=== PATIENT | male | born 2000 | race Caucasian/White ===

== ENCOUNTER 2018-03-01 15:08 | Day surgery (SDC) | payer BC ==
[~2018-03-01 15:08] MED LIST: HYDROCODONE/APAP 5/325 TAB PO SCH
--- NOTE | 2018-03-01 15:39 | EDPHY ---
H & P Stated Complaint: RUQ abd pain Time Seen by Provider: 03/01/18 15:35 HPI/ROS: HPI: This is a 18-year-old male who presents with Chief Complaint: Right upper quadrant abdominal pain Location: Right upper quadrant abdominal Quality: Pain Duration: Since this morning around 8:00 a.m. Signs and Symptoms: no fever, no nausea, no vomiting, no hematemesis, no blood in stool, no abdominal bloating, no diarrhea, no back pain, no urinary symptoms , no testicular/groin pain, no indigestion, no chest pain, no shortness of breath Timing: Acute, intermittent Severity: [id number] Context: Patient reports that he had run noodles for dinner yesterday and 1 beer woke up this morning with mid right abdominal pain that was more upper this morning and has now moved to the lower quadrant this afternoon. He reports he went to [facility] who was concerned about appendicitis and was directed to the emergency room for further evaluation. He denies fever, nausea, vomiting, diarrhea, urinary symptoms, testicular groin pain. His last meal ingestion was around noon for lunch. Mother is at bedside. Patient had a bowel movement yesterday. Ate burrito at 2:00 p.m. Modifying Factors: None Comment: ROS: A comprehensive 10 system review of systems is otherwise negative aside from elements mentioned in the history of present illness. MEDICAL/SURGICAL/SOCIAL HISTORY: Medical history: Generally healthy. Does not take any regular medications. Surgical history: Denies Social history: Nonsmoker. Denies drug use. Student at [employer]. Family history noncontributory. CONSTITUTIONAL: Nontoxic-appearing extremely well-appearing young adult white male, awake and alert, no obvious distress HEENT: Atraumatic and normocephalic, PERRL, EOMI. Nares patent; no rhinorrhea; no nasal mucosal edema. Tympanic membranes clear. Oropharynx clear, no exudate and moist pink mucosa. Airway patent. No lymphadenopathy. No meningismus. Cardiovascular: Normal S1/S2, regular rate, regular rhythm, without murmur rub or gallop. PULMONARY/CHEST: Symmetrical and nontender. Clear to auscultation bilaterally. Good air movement. No accessory muscle usage. ABDOMEN: Soft, nondistended, mild right upper quadrant and right lower quadrant tenderness, no rebound, no guarding, no peritoneal signs, no masses or organomegaly. No CVAT. EXTREMITIES: 2/2 pulses, strength 5/5, no deformities, no clubbing, no cyanosis or edema. NEUROLOGICAL: no focal neuro deficits. GCS 15. SKIN: Warm and dry, no erythema. no rash. Good capillary refill. Source: Patient Exam Limitations: No limitations - Personal History Current Tetanus/Diphtheria Vaccine: Yes Current Tetanus Diphtheria and Acellular Pertussis (TDAP): Yes - Medical/Surgical History Hx Asthma: No Hx Chronic Respiratory Disease: No Hx Diabetes: No Hx Cardiac Disease: No Hx Renal Disease: No Hx Cirrhosis: No Hx Alcoholism: No Hx HIV/AIDS: No Hx Splenectomy or Spleen Trauma: No Other PMH: denies - Social History Smoking Status: Never smoked Constitutional: Initial Vital Signs Temperature (C) 37.1 C 03/01/18 15:23 Heart Rate 82 03/01/18 15:23 Respiratory Rate 16 03/01/18 15:23 Blood Pressure 117/72 03/01/18 15:23 O2 Sat (%) 96 03/01/18 15:23 O2 Delivery Mode Room Air Allergies/Adverse Reactions: No Known Allergies Allergy (Unverified 03/01/18 15:23) Home Medications: Medication Instructions Recorded Ibuprofen [Motrin (*)] 600 mg PO Q8H PRN 03/01/18 Medical Decision Making - Diagnostics Imaging Results: Imaging Impressions Abdomen Ultrasound 03/01/18 15:40 Impression: 1. Partially contracted gallbladder in this patient who is recently postprandial , limiting assessment. There is no cholelithiasis or bile duct dilatation. 2. Mildly thickened, noncompressible tender appendix, consistent with a mild appendicitis. Findings were discussed with Shu Gray PA-C at 16:36, on 03/01/2018. ED Course/Re-evaluation: Vital signs reviewed and stable upon arrival. No systemic signs. Laboratory studies and IV access obtained. Abdominal ultrasound concentrated on the right upper quadrant for gallbladder disease and right lower quadrant for appendicitis ordered. Cortes score=4 Right lower quadrant tenderness +2: yes Elevated temperature greater than 99.1 F +1: no Rebound tenderness +1: no Migration of pain to the right lower quadrant +1: yes Anorexia +1: no Nausea or vomiting +1: no Leukocytosis [place] 77097+ 2: yes Leukocyte left shift+1: yes Less than or equal to 3 equals appendicitis unlikely Greater than or equal to 7 equal Surgical consultation 1550: Labs reviewed. WBC 14 K with left shift, creatinine 1.1. No anemia, acute kidney injury, electrolyte imbalance, pancreatitis, elevated LFTs. 1640: Called by radiologist, Dr. Lamar, who advises that right upper quadrant ultrasound shows no signs of cholelithiasis, cholecystitis with negative Last sign. Right lower quadrant ultrasound shows 8.2 mm appendix that is thickened and shows mild appendicitis. 1645: IV ceftriaxone 2 g and IV Flagyl 500 mg given. NPO status. 1648: ED decision to consult surgery. Spoke with BENJAMIN Quick, as Dr. Nino is currently in surgery. Last meal ingestion was at 2:00 p.m. 1755: Dr. Nino at bedside. Plan is to take patient to OR at 2100. This patient was seen under the supervision of my secondary supervising physician. I evaluated care for this patient independently. Discussed this patient with Dr. Quinonez. Differential Diagnosis: Abdominal pain including but not limited to appendicitis, cholecystitis, gastritis and urinary tract infection. - Data Points Laboratory Results: Laboratory Results 03/01/18 15:35 03/01/18 15:35 03/01/18 03/01/18 03/01/18 15:40 15:35 15:35 WBC 14.35 10^3/uL H 10^3/uL (3.80-9.50) RBC 5.23 10^6/uL 10^6/uL (4.40-6.38) Hgb 14.9 g/dL g/dL (13.7-17.5) POC Hgb 15.6 gm/dL gm/dL (13.7-17.5) Hct 43.4 % % (40.0-51.0) POC Hct 46 % % (40-51) MCV 83.0 fL fL (81.5-99.8) MCH 28.5 pg pg (27.9-34.1) MCHC 34.3 g/dL g/dL (32.4-36.7) RDW 12.8 % % (11.5-15.2) Plt Count 271 10^3/uL 10^3/uL (150-400) MPV 10.0 fL fL (8.7-11.7) Neut % (Auto) 84.7 % H % (39.3-74.2) Lymph % (Auto) 9.6 % L % (15.0-45.0) [place] % (Auto) 5.0 % % (4.5-13.0) Eos % (Auto) 0.1 % L % (0.6-7.6) Baso % (Auto) 0.3 % % (0.3-1.7) Nucleat RBC Rel Count 0.0 % % (0.0-0.2) Absolute Neuts (auto) 12.15 10^3/uL H 10^3/uL (1.70-6.50) Absolute Lymphs (auto) 1.38 10^3/uL 10^3/uL (1.00-3.00) Absolute Monos (auto) 0.72 10^3/uL 10^3/uL (0.30-0.80) Absolute Eos (auto) 0.02 10^3/uL L 10^3/uL (0.03-0.40) Absolute Basos (auto) 0.04 10^3/uL 10^3/uL (0.02-0.10) Absolute Nucleated RBC 0.00 10^3/uL 10^3/uL (0-0.01) Immature Gran % 0.3 % % (0.0-1.1) Immature Gran # 0.04 10^3/uL 10^3/uL (0.00-0.10) POC Sodium 140 mEq/L mEq/L (135-145) Sodium 138 mEq/L mEq/L (135-145) POC Potassium 3.4 mEq/L mEq/L (3.3-5.0) Potassium 3.8 mEq/L mEq/L (3.3-5.0) POC Chloride 100 mEq/L mEq/L (97-110) Chloride 100 mEq/L mEq/L (97-110) Carbon Dioxide 28 mEq/l mEq/l (22-31) Anion Gap 10 mEq/L mEq/L (6-14) POC BUN 16 mg/dL mg/dL (7-23) BUN 17 mg/dL mg/dL (7-23) Creatinine 1.0 mg/dL mg/dL (0.7-1.3) POC Creatinine 1.1 mg/dL mg/dL (0.7-1.3) Estimated GFR > 60 Glucose 106 mg/dL H mg/dL (70-100) POC Glucose 107 mg/dL H mg/dL (70-100) Calcium 9.5 mg/dL mg/dL (8.5-10.4) Total Bilirubin 1.0 mg/dL mg/dL (0.1-1.4) Conjugated Bilirubin 0.2 mg/dL mg/dL (0.0-0.5) Unconjugated Bilirubin 0.8 mg/dL mg/dL (0.0-1.1) AST 24 IU/L IU/L (17-59) ALT 26 IU/L IU/L (21-72) Alkaline Phosphatase 97 IU/L IU/L (38-126) Total Protein 8.2 g/dL g/dL (6.3-8.2) Albumin 4.6 g/dL g/dL (3.5-5.0) Lipase 63 IU/L IU/L (23-300) Medications Given: Discontinued Medications Ceftriaxone Sodium 2 gm/ (Sodium Chloride) 50 mls @ 100 mls/hr IV EDNOW ONE PRN Reason: Protocol Stop: 03/01/18 17:10 Last Admin: 03/01/18 18:04 Dose: 50 mls Metronidazole/Sodium Chloride (Flagyl 500 Mg (Premix)) 100 mls @ 100 mls/hr IV EDNOW ONE PRN Reason: Protocol Stop: 03/01/18 17:40 Last Admin: 03/01/18 16:50 Dose: 100 mls Point of Care Test Results: Chemistry 03/01/18 15:40 POC Sodium 140 mEq/L mEq/L (135-145) POC Potassium 3.4 mEq/L mEq/L (3.3-5.0) POC Chloride 100 mEq/L mEq/L (97-110) POC BUN 16 mg/dL mg/dL (7-23) POC Creatinine 1.1 mg/dL mg/dL (0.7-1.3) POC Glucose 107 mg/dL H mg/dL (70-100) ISTAT H&H 03/01/18 15:40 POC Hgb 15.6 gm/dL gm/dL (13.7-17.5) POC Hct 46 % % (40-51) Departure - Departure Disposition: [facility] Acute Clinical Impression: Acute appendicitis with localized peritonitis Qualifiers: Appendicitis gangrene presence: without gangrene Appendicitis perforation presence: without perforation Appendicitis abscess presence: without abscess Qualified Code(s): K35.30 - Acute appendicitis with localized peritonitis, without perforation or gangrene Condition: Fair
[2018-03-01 15:47] LABS: PLATELET COUNT 271 10^3/uL (150-400)
--- NOTE | 2018-03-01 18:36 | PDGENHP ---
History and Physical - Chief Complaint abd pain - History of Present Illness 18 y/o Freshman with onset of abd pain this morning localizing to the RLQ. Patient was seen in the ED with clinical findings c/w appendicitis confirmed by ultrasound. He denies nausea, anorexia, diarrhea History Information - Allergies/Home Medication List Allergies/Adverse Reactions: No Known Allergies Allergy (Unverified 03/01/18 15:23) Home Medications: Ibuprofen [Motrin (*)] 600 mg PO Q8H PRN 03/01/18 [Last Taken 02/28/18] I have personally reviewed and updated: family history, medical history, social history, surgical history - Past Medical History no pertinent PMH - Surgical History Reports: no pertinent surgical hx - Family History Positive for: non-pertinent - Social History Smoking Status: Never smoked (uses a vape pen/no cigarettes) Tobacco Use: Other (vape pen) Alcohol Use: Occasionally Drug Use: None 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 Review of Systems Review of Systems: Constitutional: Reports: no symptoms EENMT: Reports: no symptoms Cardiac: Reports: no symptoms Respiratory: Reports: no symptoms Gastrointestinal: Reports: abdominal pain Genitourinary: Reports: no symptoms Muscolosketal: Reports: no symptoms Neurological: Reports: no symptoms Physical Exam Physical Exam: Temp Pulse Resp BP Pulse Ox 36.8 C 66 16 134/65 H 95 03/01/18 18:28 03/01/18 18:28 03/01/18 18:28 03/01/18 18:28 03/01/18 18:28 Constitutional: no apparent distress Eyes: anicteric sclera Ears, Nose, Mouth, Throat: moist mucous membranes Cardiovascular: regular rate and rhythym Respiratory: no respiratory distress, no rales or rhonchi, clear to auscultation Gastrointestinal: other (hypoactive bowel sounds/tender to percussion RLQ, Rovsing's sign positive) Skin: warm, normal color Neurologic: AAOx3 Psychiatric: interacting appropriately, not anxious Lab Data & Imaging Review 03/01/18 15:35 03/01/18 15:35 WBC 14.35 10^3/uL (3.80-9.50) H 03/01/18 15:35 RBC 5.23 10^6/uL (4.40-6.38) 03/01/18 15:35 Hgb 14.9 g/dL (13.7-17.5) 03/01/18 15:35 POC Hgb 15.6 gm/dL (13.7-17.5) 03/01/18 15:40 Hct 43.4 % (40.0-51.0) 03/01/18 15:35 POC Hct 46 % (40-51) 03/01/18 15:40 MCV 83.0 fL (81.5-99.8) 03/01/18 15:35 MCH 28.5 pg (27.9-34.1) 03/01/18 15:35 MCHC 34.3 g/dL (32.4-36.7) 03/01/18 15:35 RDW 12.8 % (11.5-15.2) 03/01/18 15:35 Plt Count 271 10^3/uL (150-400) 03/01/18 15:35 MPV 10.0 fL (8.7-11.7) 03/01/18 15:35 Neut % (Auto) 84.7 % (39.3-74.2) H 03/01/18 15:35 Lymph % (Auto) 9.6 % (15.0-45.0) L 03/01/18 15:35 [place] % (Auto) 5.0 % (4.5-13.0) 03/01/18 15:35 Eos % (Auto) 0.1 % (0.6-7.6) L 03/01/18 15:35 Baso % (Auto) 0.3 % (0.3-1.7) 03/01/18 15:35 Nucleat RBC Rel Count 0.0 % (0.0-0.2) 03/01/18 15:35 Absolute Neuts (auto) 12.15 10^3/uL (1.70-6.50) H 03/01/18 15:35 Absolute Lymphs (auto) 1.38 10^3/uL (1.00-3.00) 03/01/18 15:35 Absolute Monos (auto) 0.72 10^3/uL (0.30-0.80) 03/01/18 15:35 Absolute Eos (auto) 0.02 10^3/uL (0.03-0.40) L 03/01/18 15:35 Absolute Basos (auto) 0.04 10^3/uL (0.02-0.10) 03/01/18 15:35 Absolute Nucleated RBC 0.00 10^3/uL (0-0.01) 03/01/18 15:35 Immature Gran % 0.3 % (0.0-1.1) 03/01/18 15:35 Immature Gran # 0.04 10^3/uL (0.00-0.10) 03/01/18 15:35 POC Sodium 140 mEq/L (135-145) 03/01/18 15:40 Sodium 138 mEq/L (135-145) 03/01/18 15:35 POC Potassium 3.4 mEq/L (3.3-5.0) 03/01/18 15:40 Potassium 3.8 mEq/L (3.3-5.0) 03/01/18 15:35 POC Chloride 100 mEq/L (97-110) 03/01/18 15:40 Chloride 100 mEq/L (97-110) 03/01/18 15:35 Carbon Dioxide 28 mEq/l (22-31) 03/01/18 15:35 Anion Gap 10 mEq/L (6-14) 03/01/18 15:35 POC BUN 16 mg/dL (7-23) 03/01/18 15:40 BUN 17 mg/dL (7-23) 03/01/18 15:35 Creatinine 1.0 mg/dL (0.7-1.3) 03/01/18 15:35 POC Creatinine 1.1 mg/dL (0.7-1.3) 03/01/18 15:40 Estimated GFR > 60 03/01/18 15:35 Glucose 106 mg/dL (70-100) H 03/01/18 15:35 POC Glucose 107 mg/dL (70-100) H 03/01/18 15:40 Calcium 9.5 mg/dL (8.5-10.4) 03/01/18 15:35 Total Bilirubin 1.0 mg/dL (0.1-1.4) 03/01/18 15:35 Conjugated Bilirubin 0.2 mg/dL (0.0-0.5) 03/01/18 15:35 Unconjugated Bilirubin 0.8 mg/dL (0.0-1.1) 03/01/18 15:35 AST 24 IU/L (17-59) 03/01/18 15:35 ALT 26 IU/L (21-72) 03/01/18 15:35 Alkaline Phosphatase 97 IU/L (38-126) 03/01/18 15:35 Total Protein 8.2 g/dL (6.3-8.2) 03/01/18 15:35 Albumin 4.6 g/dL (3.5-5.0) 03/01/18 15:35 Lipase 63 IU/L (23-300) 03/01/18 15:35 Visualized and Interpreted imaging results: Yes Interpretation: dilated tubular structure RLQ c/w appendicitis Assessment & Plan Assessment: Acute appendicitis Plan: We discussed the diagnosis and treatment options. I recommended laparoscopic appendectomy. We reviewed the procedure, expected recovery and risks. Informed consent was obtained He has received Ceftriaxone and Flagyl. Surgery is now scheduled to follow other emergencies and will probably be delayed a few hours. Srinivasa Nino MD, FACS
[2018-03-01] MEDS ORDERED: LR 1,000 ML IV ONE (19:45)
--- NOTE | 2018-03-01 21:03 | PDANEPAE ---
ANE Past Medical History - Pulmonary History Hx Oxygen in Use at Home: No Hx Sleep Apnea: No - Endocrine History Hx Diabetes: No ANE Review of Systems Review of Systems: ANE Patient History - Allergies Allergies/Adverse Reactions: No Known Allergies Allergy (Unverified 03/01/18 15:23) - Home Medications Home Medications: Ibuprofen [Motrin (*)] 600 mg PO Q8H PRN 03/01/18 [Last Taken 02/28/18] - NPO status NPO Since - Liquids (Date): 03/01/18 NPO Since - Liquids (Time): 14:30 NPO Since - Solids (Date): 03/01/18 NPO Since - Solids (Time): 14:30 - Smoking Hx Smoking Status: Never smoked - Alcohol Use Alcohol Use: Occasionally ANE Labs/Vital Signs - Labs Result Diagrams: 03/01/18 15:35 03/01/18 15:35 - Vital Signs Blood Pressure: 130/69 Heart Rate: 70 Respiratory Rate: 15 O2 Sat (%): 95 Height: 182.88 cm Weight: 81.647 kg ANE Physical Exam - Airway Neck exam: FROM Mallampati Score: Class 2 Mouth exam: normal dental/mouth exam - Pulmonary Pulmonary: no respiratory distress - Cardiovascular Cardiovascular: regular rate and rhythym - ASA Status ASA Status: I, E ANE Anesthesia Plan Anesthesia Plan: general endotracheal anesthesia
[2018-03-01] MEDS ORDERED: ONDANSETRON 4 MG/2 ML VIAL IVP PRN ×2 (21:04→22:51)
[2018-03-01] MEDS ORDERED: ALBUTEROL 3 ML DEYVIAL IH PRN ×2 (21:04→22:51)
[2018-03-01] MEDS ORDERED: fentaNYL 100 MCG/2 ML INJ IVP PRN ×2 (21:04→22:51)
[2018-03-01] MEDS ORDERED: NALOXONE HCL 0.4 MG/ML INJ IVP PRN ×2 (21:04→22:51)
[2018-03-01] MEDS ORDERED: MEPERIDINE 25 MG/0.5 ML AMP IVP PRN ×2 (21:04→22:51)
[2018-03-01] MEDS ORDERED: MIDAZOLAM 2 MG/2 ML VIAL IVP ONE (21:10)
[2018-03-01] MEDS ORDERED: fentaNYL 250 MCG/5 ML INJ ONE (21:11)
[2018-03-01] MEDS ORDERED: PROPOFOL 200 MG/20 ML VIAL ONE (21:12)
[2018-03-01] MEDS ORDERED: DEXAMETHASONE 4 MG/ML VIAL ONE ×2 (21:12)
[2018-03-01] MEDS ORDERED: ROCURONIUM 50 MG/5 ML VIAL ONE (21:12)
[2018-03-01] MEDS ORDERED: METOCLOPRAMIDE 10 MG/2 ML VIAL ONE (21:12)
[2018-03-01] MEDS ORDERED: LIDOCAINE 2% 100 MG/5 ML SYR ONE (21:12)
[2018-03-01] MEDS ORDERED: MIDAZOLAM 2 MG/2 ML VIAL ONE (21:50)
[2018-03-01] MEDS ORDERED: BUPIVACAINE 0.25% 30 ML SDV ONE (22:06)
[2018-03-01] MEDS ORDERED: KETOROLAC 30 MG/1 ML SDV ONE (22:13)
[2018-03-01] MEDS ORDERED: SUGAMMADEX SODIUM 200 MG/2 ML VIAL IVP ONE (22:23)
--- NOTE | 2018-03-01 22:50 | POSTANESTH ---
Post Anesthetic Evaluation Cardiovascular Status: Similar to Pre-Op Cond Respiratory Status: Similar to Pre-op Cond. Level of Consciousness/Mental Status: Mildly Sleepy, Arousable Pain Control: Adequate, Prn Tx Ordered Nausea/Vomiting Control: Adequate, Prn Tx Ordered Complications Possibly Related to Anesthesia: None Noted
[2018-03-01] MEDS ORDERED: HYDROCODONE/APAP 5/325 TAB PO PRN ×2 (22:51→23:01)
[2018-03-01] MEDS ORDERED: ACETAMINOPHEN 500 MG TAB PO PRN (22:51)
[2018-03-01] MEDS ORDERED: HYDROmorphONE/DILAUDID 2 MG/ML INJ IVP PRN (22:51)
[2018-03-01] MEDS ORDERED: oxyCODONE IR 5 MG TAB PO PRN (22:51)
[2018-03-01] MEDS ORDERED: HYDROmorphONE/DILAUDID 1 MG/ML INJ IVP PRN (23:01)
--- NOTE | 2018-03-01 23:01 | POSTOPPROG ---
Post Op Note Date of Operation: 03/01/18 Surgeon: Gonzales Nino (, FACS) Anesthesiologist: Thad Meyer MD Anesthesia: GET(General Endotracheal) Pre-op Diagnosis: appendicitis Procedure: lap appendectomy Findings: acute suppurative appendicitis Inf/Abcess present in the surg proc area at time of surgery?: Yes Depth: Organ Space EBL: Minimal (10 ml)
[2018-03-02 02:01] VITALS: BP 133/62
[2018-03-02] MEDS ORDERED: IBUPROFEN 600 MG TAB PO SCH (06:00)
--- NOTE | 2018-03-02 07:02 | GOP ---
DATE OF OPERATION: 03/01/2018 SURGEON: Gonzales Nino MD, FACS ANESTHESIA: General endotracheal. ANESTHESIOLOGIST: Mason Meyer MD PREOPERATIVE DIAGNOSIS: Acute appendicitis. POSTOPERATIVE DIAGNOSIS: Acute appendicitis. PROCEDURE PERFORMED: Laparoscopic appendectomy. FINDINGS: Acute suppurative appendicitis. ESTIMATED BLOOD LOSS: 10 cc DESCRIPTION OF PROCEDURE: After informed consent was obtained, the patient was brought to the operating room and placed under general anesthesia. The abdomen was clipped, prepped, and draped in the usual fashion. Before proceeding, a time-out and identification of the patient was performed. 0.25% Marcaine was used to infiltrate all incision sites. A transverse incision was made through the base of the umbilicus and carried through the skin and subcutaneous tissues. Ventral traction was applied to the abdominal wall as a Veress needle was introduced into the peritoneal cavity and position was confirmed by saline infusion. A pneumoperitoneum was established with CO2 gas to a pressure of 15 mmHg. The Veress needle was withdrawn and replaced with a 5 mm bladeless trocar. This allowed introduction of a 30 degree 5 mm scope. Under direct visualization, an additional 5 mm port was placed in the suprapubic position and a 12 mm port in the left lower quadrant. The appendix was in a right pericecal position with surrounding early fibrinous exudate, but no evidence of gangrene or perforation. The mesoappendix was dispatched with a Harmonic Scalpel and the appendix from the cecum with a single firing of the ESDRAS stapler. The appendix was then retrieved through the left lower quadrant port site with an Endopouch. The operative field appeared hemostatic. The left lower quadrant fascial closure was performed with a transfascial closure needle and 0 Vicryl suture. The pneumoperitoneum was evacuated. The remaining ports were removed. Subcutaneous tissues and skin were closed with 3-0 and 4-0 Monocryl suture in a subcuticular fashion. Topical Dermabond was applied. The patient was returned to the recovery room in satisfactory condition. COUNTS: Needle, sponge, and instrument count were correct. COMPLICATIONS: None. /[id number]/MODL MTDD
== END 2018-03-02 00:24 ==
LOC: FSGY 16:50 → UNDOADMOB 16:50 → UNDODISOB 03-02 00:24 → FSGY 03-02 00:24
PROVIDERS: ATTEND Surgery
PROC: 0DTJ4ZZ Resection of Appendix, Percutaneous Endoscopic Approach (ICD-10-PCS; principal; 2018-03-01 21:00)
DX: K35.80 Unspecified acute appendicitis (principal)
CPT/HCPCS: 82435-PO; 82565-PO; 82947-PO; 84132-PO; 84295-PO; 84520-PO; 85014-PO; 96365; J0696; J1100; J1885; J2001; J2250; J2704; J2765; J3010